=== PATIENT | male | born 1980 | race Caucasian/White ===

== ENCOUNTER 2018-05-18 21:31 | Emergency (ER) | payer OTHER ==
[~2018-05-18] VITALS: Ht 180.3 cm; Wt 72.7 kg
[2018-05-18] MEDS ORDERED: LORazepam 2 mg/ml vial IM ONE (21:40)
[2018-05-18 21:55] LABS: BASOPHILS # (AUTO) 0.1 X10'3 (0-0.2); BASOPHILS % (AUTO) 0.4 % (0-1); EOSINOPHILS # (AUTO) 0.2 X10'3 (0-0.9); EOSINOPHILS % (AUTO) 1.4 % (0-6); HEMATOCRIT 42.7 % (42.0-52.0); HEMOGLOBIN 13.9 g/dl (14.0-17.9); LYMPHOCYTES # (AUTO) 4.8 X10'3 (1.1-4.8); LYMPHOCYTES % (AUTO) 30.5 % (21-51); MEAN CORPUSCULAR HEMOGLOBIN 30.5 PG (27.0-31.0); MEAN CORPUSCULAR HGB CONC 32.5 g/dL (33.0-36.5); MEAN CORPUSCULAR VOLUME 93.8 FL (78-98); MEAN PLATELET VOLUME 8.7 FL (7.4-10.4); MONOCYTES # (AUTO) 1.7 X10'3 (0-0.9); MONOCYTES % (AUTO) 10.4 % (2-12); NEUTROPHILS % (AUTO) 57.3 % (42-75); PLATELET COUNT 262 X10'3 (140-440); RED BLOOD COUNT 4.56 X10'6 (4.70-6.10); RED CELL DISTRIBUTION WIDTH 14.9 % (11.5-14.5); WHITE BLOOD COUNT 15.8 X10'3 (4.5-11.0)
[2018-05-18 22:05] LABS: ALANINE AMINOTRANSFERASE 23 U/L (12-78); ALBUMIN 3.9 G/DL (3.4-5.0); ALBUMIN/GLOBULIN RATIO 1.1 (1.1-1.5); ALKALINE PHOSPHATASE 116 IU/L (46-116); ANION GAP 26 (8-16); ASPARTATE AMINO TRANSFERASE 22 U/L (10-37); BILIRUBIN,TOTAL 0.5 MG/DL (0.1-1.0); BLOOD UREA NITROGEN 18 MG/DL (7-18); BUN/CREATININE RATIO 11.3 (5.4-32.0); CALCIUM 9.7 MG/DL (8.5-10.1); CHLORIDE 98 MMOL/L (99-107); CREATINE KINASE 146 U/L (39-308); CREATININE 1.59 MG/DL (0.60-1.10); GLUCOSE 209 MG/DL (70-104); POTASSIUM 3.1 MMOL/L (3.5-5.1); SODIUM 136 MMOL/L (135-145); TOTAL PROTEIN 7.5 G/DL (6.4-8.2); eGFR 51 ML/MIN
[2018-05-18 22:08] LABS: TOTAL CARBON DIOXIDE 11.9 MMOL/L (24-32)
[2018-05-18 22:09] LABS: URINE AMPHETAMINE SCREEN POSITIVE (Neg); URINE BARBITUATE SCREEN NEGATIVE (Neg); URINE BENZODIAZEPINES SCREEN NEGATIVE (Neg); URINE CANNABINOID SCREEN POSITIVE (Neg); URINE COCAINE SCREEN NEGATIVE (Neg); URINE METHADONE SCREEN NEGATIVE (Neg); URINE OPIATE SCREEN NEGATIVE (Neg); URINE PHENCYCLIDINE SCREEN NEGATIVE (Neg)
[2018-05-18] MEDS ORDERED: LIDOcaine 1% w/epiNEPHrine 1:200,000 30ml vial IM ONE (22:10)
[2018-05-18] MEDS ORDERED: TETanus/Pertussis (Acell)/Diphther VAC/PF (Tdap-Adult) 0.5ml syringe IM ONE (22:10)
[2018-05-18 22:22] LABS: ETHANOL < 0.010 GM/DL (0.0-0.010)
[2018-05-18 22:29] LABS: TOTAL CELLS COUNTED 100
[2018-05-18 22:30] LABS: PLATELET ESTIMATE NORMAL
[2018-05-18] MEDS ORDERED: LORazepam 2 mg/ml vial IV ONE (23:05)
[2018-05-18] MEDS ORDERED: normal saline 1000ml 1,000 ML IV ONE (23:05)
[2018-05-18 23:39] VITALS: BP 148/74
[2018-05-18] MEDS ORDERED: metoprolol tartrate 1mg/ml inj IV ONE (23:50)
--- NOTE | 2018-05-19 00:38 | NUR ---
LAB CALLING REQUESTING A REDRAW OF PT'S CMP, HE IS CONCERNED IT IS A DILAUTED SAMPLE. PRIMARY RN, ELMER CARTER.
[2018-05-19] MEDS ORDERED: haloperidol lactate 5mg/ml inj IM ONE (00:50)
[2018-05-19] MEDS ORDERED: diphenhydrAMINE 50 mg/ml inj IM ONE (00:50)
[2018-05-19] MEDS ORDERED: LORazepam 2 mg/ml vial IV ONE (00:50)
[2018-05-19 01:09] LABS: ALANINE AMINOTRANSFERASE 24 U/L (12-78); ALBUMIN 3.4 G/DL (3.4-5.0); ALBUMIN/GLOBULIN RATIO 1.1 (1.1-1.5); ALKALINE PHOSPHATASE 97 IU/L (46-116); ANION GAP 10 (8-16); ASPARTATE AMINO TRANSFERASE 34 U/L (10-37); BILIRUBIN,TOTAL 0.6 MG/DL (0.1-1.0); BLOOD UREA NITROGEN 18 MG/DL (7-18); BUN/CREATININE RATIO 14.8 (5.4-32.0); CALCIUM 8.7 MG/DL (8.5-10.1); CHLORIDE 107 MMOL/L (99-107); CREATININE 1.22 MG/DL (0.60-1.10); GLUCOSE 73 MG/DL (70-104); POTASSIUM 4.1 MMOL/L (3.5-5.1); SODIUM 140 MMOL/L (135-145); TOTAL CARBON DIOXIDE 22.7 MMOL/L (24-32); TOTAL PROTEIN 6.4 G/DL (6.4-8.2); eGFR 66 ML/MIN
[2018-05-19] MEDS ORDERED: CEPH-572 PO (01:20)
== END 2018-05-19 01:50 ==
LOC: EDBD 21:31 → ER 21:31
DX: S62.391A Other fracture of second metacarpal bone, left hand, initial encounter for closed fracture (principal); S61.412A Laceration without foreign body of left hand, initial encounter; F15.959 Other stimulant use, unspecified with stimulant-induced psychotic disorder, unspecified; S00.412A Abrasion of left ear, initial encounter; S00.411A Abrasion of right ear, initial encounter; S00.31XA Abrasion of nose, initial encounter; S20.319A Abrasion of unspecified front wall of thorax, initial encounter; Y04.8XXA Assault by other bodily force, initial encounter; Y93.89 Activity, other specified; Y92.89 Other specified places as the place of occurrence of the external cause; Y99.8 Other external cause status
CPT/HCPCS: 12002; 29125; 36415; 73130; 80053; 80305; 80320; 82550; 85025; 90471; 90715; 96372; 96374; 96375; 96376; 99284; J1200; J1630; J2060; J7030; J3490